=== PATIENT | male | born 1965 | race Caucasian/White ===

== ENCOUNTER → 2019-07-24 13:48 | Outpatient (BNVA) | payer MEDICAID, SELFPAY | PROVIDERS: Visit Provider Social Worker | DX: F33.2 Major depressive disorder, recurrent severe without psychotic features (principal); F43.12 Post-traumatic stress disorder, chronic | CPT/HCPCS: 90834 ==

== ENCOUNTER 2019-08-08 16:15 | Inpatient (IN) | payer MEDICAID, SELFPAY ==
--- NOTE | 2019-08-08 16:34 | ED_ITS ---
Entered by Evi Wild, acting as scribe for Jolanta Cedeno MD HPI - Psych General: Chief Complaint: Psychiatric Symptoms Stated Complaint: SI Time Seen by Provider: 08/08/19 16:33 Source: patient and RN notes reviewed Mode of arrival: ambulatory Limitations: no limitations History of Present Illness: HPI Narrative: 53 yo male presents to ED with suicidal ideations. Patient states has been feeling this way for over a week but he said the feeling intensified this morning. He said he has had a lot of things going on and his anxiety is higher. He states he has a very sharp knife that he was going to use and his girlfriend has a lot of medications available. He said he tried several years ago to commit suicide after witnessing his son commit suicide. He said he has not missed any doses of his medications. He said sometimes he uses marijuana, in addition to his medications, to help him sleep at night due to his PTSD and night terrors. complaint: suicidal ideation Onset (ago): week(s) (1) Duration: intermittent and getting worse History of same: Yes Relieving factors: none Exacerbating factors: other (anxiety) Context: significant life stressor Associated psychiatric symptoms: suicidal ideation Associated symptoms: Reports suicidal ideation Treatments prior to arrival: none If self harm: has plan Details of plan: use a knife Review of Systems General: Reports: 10 or more systems reviewed and unremarkable except in HPI and below Const: Denies: fever or chills Eyes: Denies: change in vision ENMT: Denies: throat pain Card: Denies: chest pain Resp: Denies: shortness of breath GI: Denies: abdominal pain, nausea, vomiting or change in bowel habits Musc: Denies: muscle weakness Skin/Breast: Denies: rash Neuro: Denies: headache Psych: Reports: suicidal ideation Endo: Denies: excessive urination [place]/Lymph: Denies: easy bruising or easy bleeding All/Imm: Denies: hives PFSH ED PFSH: Statuses (acute, chronic, etc) shown below reflect problem list status as previously entered and may not be historically accurate Social History Smoking and tobacco status: never smoked Physical Exam Const: COMMON NORMALS: no apparent distress, average body habitus, oriented x3, no limitations, healthy appearing, alert and well nourished HENMT: COMMON NORMALS: normocephalic, external ears normal and external nose normal HEAD & SCALP: normocephalic NOSE: external nose normal EXTERNAL EAR: Yes external ears normal MOUTH: oral and palatal mucosa normal THROAT: posterior oropharynx normal Eye: COMMON NORMALS: PERRL, EOMs intact bilaterally, conjunctivae normal and no scleral icterus CONJUNCTIVA: Yes conjunctivae normal PUPIL: Yes PERRL Neck/C-Spine: COMMON NORMALS: full ROM, no lymphadenopathy, supple and no meningeal signs CERVICAL SPINE: Yes cervical ROM normal Lymph: LYMPHATIC: no lymphadenopathy noted Chest: COMMONS NORMALS: inspection of chest normal Resp: COMMON NORMALS: normal respiratory effort, no retractions, no use of accessory muscles and clear to auscultation bilaterally AUSCULTATION: clear to auscultation bilaterally Cardio: COMMON NORMALS: regular rate, regular rhythm, no gallops, no clicks, no murmurs and no rub RATE: regular rate RHYTHM: regular rhythm GI: COMMON NORMALS: normal to inspection, nondistended, normoactive bowel sounds, soft to palpation and non-tender AUSCULTATION: Yes normoactive bowel sounds PALPATION: Yes soft : COMMON NORMALS: Yes no CVA tenderness BLADDER/KIDNEY EXAM: Yes no CVA tenderness Back/Pelvis: COMMON NORMALS: no CVA tenderness Extremity: COMMON NORMALS: normal to inspection Neuro: COMMON NORMALS: oriented x3 SENSORIUM/ORIENTATION: Yes alert MENINGEAL SIGNS: Yes no meningeal signs SPEECH: speech normal Psych: COMMON NORMALS: mental status grossly normal, thought process normal, cooperative, affect normal, speech normal, activity/motor behavior normal and denies hallucinations SPEECH: Yes normal speech THOUGHT PROCESS: normal thought process Skin: COMMON NORMALS: no rashes or lesions noted GENERAL SKIN EXAM: no rashes or lesions noted MDM - Psych MDM Narrative: Medical decision making narrative: [id number] patient is medically clear he is voluntary wants to be admitted. He has not been admitted here previously but is a patient of behavioral health care. Discussed with Dr. Medeiros accepts patient for admission. Lab Data: Labs: Lab Results 08/08/19 08/08/19 08/08/19 Range/Units 17:23 17:23 17:58 WBC 11.1 H (4.0-10.0) 10^3/ uL RBC 5.20 (4.1-5.3) 10^6/u L Hgb 15.0 (11.7-16.6) g/dL Hct 45.0 (42.0-52.0) % MCV 86.5 (80-94) fL MCH 28.8 (28.0-34.0) pg MCHC 33.3 (30.0-36.0) g/dL RDW 12.0 L (12.1-15.1) % Plt Count 388 (130-400) 10^3/c mm MPV 10.1 (7.4-10.4) fL Neut % (Auto) 64.4 % Lymph % (Auto) 28.1 % [place] % (Auto) 5.9 % Eos % (Auto) 0.8 % Baso % (Auto) 0.5 % Neut # (Auto) 7.2 (1.8-7.7) 10^3/u L Lymph # (Auto) 3.1 (0.8-4.8) 10^3/u L [place] # (Auto) 0.7 (0.2-0.9) 10^3/u L Eos # (Auto) 0.1 (0.0-0.8) 10^3/u L Baso # (Auto) 0.1 (0.0-0.1) 10^3/u L Nucleated RBC % (a uto) 0 % Nucleated RBCs # 0.0 /100WBC Sodium 139 (136-145) mmol/L Potassium 3.8 (3.5-5.1) mmol/L Chloride 101 (98-107) mmol/L Carbon Dioxide 24 (22-29) mmol/L Anion Gap 17.8 (5-19) BUN 19 (6-20) mg/dL Creatinine 1.1 (0.7-1.2) mg/dL GFR Calculation 69.8 L (90-130) mL/min Glucose 126 H (65-115) mg/dL Calcium 10.7 H (8.5-10.5) mg/dL Total Bilirubin 0.2 (0.15-1.2) mg/dL AST 21 (0-40) U/L ALT 26 (0-41) U/L Alkaline Phosphata se 89 (40-130) IU/L Total Protein 8.9 H (6.6-8.7) g/dL Albumin 5.2 (3.5-5.2) g/dL Globulin 3.7 (1.3-4.6) g/dL TSH 1.54 (0.27-4.20) uIU/ mL Urine Color Yellow (Yellow) Urine Appearance Clear (CLEAR) Urine pH 5 (5-7) Ur Specific Gravit y 1.020 (1.005-1.030) Urine Protein Neg (Negative) Urine Glucose (UA) Norm (Normal) Urine Ketones Negative (Negative) Urine Occult Blood Neg (Negative) Urine Nitrate Negative (Negative) Urine Bilirubin Neg (NEGATIVE) Urine Urobilinogen Norm (Negative) mg/dL Ur Leukocyte Asiya ase Negative (Negative) Salicylates < 0.3 L (3-10) mg/dL Urine Opiates Scre en (Negative) ng/mL Acetaminophen < 5.0 L (10-30) ug/mL Ur Barbiturates Sc reen (Negative) ng/mL Ur Phencyclidine S crn (Negative) ng/mL Ur Amphetamines Sc reen (Negative) ng/mL U Benzodiazepines Scrn (Negative) ng/mL Urine Cocaine Scre en (Negative) ng/mL U Marijuana (THC) Screen (Negative) ng/mL Ethyl Alcohol < 10 (0-10) mg/dL 08/08/19 Range/Units 17:58 WBC (4.0-10.0) 10^3/ uL RBC (4.1-5.3) 10^6/u L Hgb (11.7-16.6) g/dL Hct (42.0-52.0) % MCV (80-94) fL MCH (28.0-34.0) pg MCHC (30.0-36.0) g/dL RDW (12.1-15.1) % Plt Count (130-400) 10^3/c mm MPV (7.4-10.4) fL Neut % (Auto) % Lymph % (Auto) % [place] % (Auto) % Eos % (Auto) % Baso % (Auto) % Neut # (Auto) (1.8-7.7) 10^3/u L Lymph # (Auto) (0.8-4.8) 10^3/u L [place] # (Auto) (0.2-0.9) 10^3/u L Eos # (Auto) (0.0-0.8) 10^3/u L Baso # (Auto) (0.0-0.1) 10^3/u L Nucleated RBC % (a uto) % Nucleated RBCs # /100WBC Sodium (136-145) mmol/L Potassium (3.5-5.1) mmol/L Chloride (98-107) mmol/L Carbon Dioxide (22-29) mmol/L Anion Gap (5-19) BUN (6-20) mg/dL Creatinine (0.7-1.2) mg/dL GFR Calculation (90-130) mL/min Glucose (65-115) mg/dL Calcium (8.5-10.5) mg/dL Total Bilirubin (0.15-1.2) mg/dL AST (0-40) U/L ALT (0-41) U/L Alkaline Phosphata se (40-130) IU/L Total Protein (6.6-8.7) g/dL Albumin (3.5-5.2) g/dL Globulin (1.3-4.6) g/dL TSH (0.27-4.20) uIU/ mL Urine Color (Yellow) Urine Appearance (CLEAR) Urine pH (5-7) Ur Specific Gravit y (1.005-1.030) Urine Protein (Negative) Urine Glucose (UA) (Normal) Urine Ketones (Negative) Urine Occult Blood (Negative) Urine Nitrate (Negative) Urine Bilirubin (NEGATIVE) Urine Urobilinogen (Negative) mg/dL Ur Leukocyte Asiya ase (Negative) Salicylates (3-10) mg/dL Urine Opiates Scre en Negative (Negative) ng/mL Acetaminophen (10-30) ug/mL Ur Barbiturates Sc reen Negative (Negative) ng/mL Ur Phencyclidine S crn Negative (Negative) ng/mL Ur Amphetamines Sc reen Negative (Negative) ng/mL U Benzodiazepines Scrn Negative (Negative) ng/mL Urine Cocaine Scre en Negative (Negative) ng/mL U Marijuana (THC) Screen Positive H (Negative) ng/mL Ethyl Alcohol (0-10) mg/dL Discharge Plan Discharge Patient Disposition: Admitted As Inpatient Clinical Impression: Suicidal ideation Condition: Stable Referrals: Georgia Salazar FNP [Family Provider] - Coding Level of Care Code ED Hog Pusher for Chg Fwd The documentation recorded by the scribe, Wild,Evi R, accurately reflects the service I personally performed and the decisions made by me, Jolanta Cedeno MD Aug 08, 2019 16:15
[2019-08-08 16:49] VITALS: BP 164/98; PULSE 106; RESP 18; TEMP 36.6; O2SAT 95
--- NOTE | 2019-08-08 16:57 | ECG_ITS ---
Measurements Intervals [place] Rate: 91 P: 35 LA: 138 QRS: 17 QRSD: 112 T: 39 QT: 340 QTc: 419 SINUS RHYTHM MODERATE INTRAVENTRICULAR CONDUCTION DELAY [110+ ms QRS DURATION] No previous ECG available for comparison Electronically Signed On 08-08-2019 20:02:26 CHECK PROCESSING CLERK by Santa Meyer M.D. [email or web address]
--- NOTE | 2019-08-08 17:48 | PC.NURSE ---
Pt states he is unable to void at this time.
[2019-08-08 17:59] LABS: Basophils # 0.1 10^3/uL (0.0-0.1); Basophils % 0.5 %; Eosinophils # 0.1 10^3/uL (0.0-0.8); Eosinophils % 0.8 %; Lymphocytes # 3.1 10^3/uL (0.8-4.8); Lymphocytes % 28.1 %; Mean Corpuscular HGB Conc 33.3 g/dL (30.0-36.0); Mean Corpuscular Hemoglobin 28.8 pg (28.0-34.0); Mean Corpuscular Volume 86.5 fL (80-94); Mean Platelet Volume 10.1 fL (7.4-10.4); Monocytes # 0.7 10^3/uL (0.2-0.9); Monocytes % 5.9 %; Neutrophils # 7.2 10^3/uL (1.8-7.7); Neutrophils % 64.4 %; Nucleated Red Blood Cells % 0 %; Platelet Count 388 10^3/cmm (130-400); White Blood Count 11.1 10^3/uL (4.0-10.0)
[2019-08-08 18:19] LABS: Alanine Aminotransferase 26 U/L (0-41); Albumin Level 5.2 g/dL (3.5-5.2); Alkaline Phosphatase 89 IU/L (40-130); Anion Gap 17.8 (5-19); Aspartate Amino Transferase 21 U/L (0-40); Blood Urea Nitrogen 19 mg/dL (6-20); Calcium 10.7 mg/dL (8.5-10.5); Carbon Dioxide 24 mmol/L (22-29); Chloride 101 mmol/L (98-107); Globulin 3.7 g/dL (1.3-4.6); Glomerular Filtration Rate 69.8 mL/min (90-130); Glucose 126 mg/dL (65-115); Potassium 3.8 mmol/L (3.5-5.1); Sodium 139 mmol/L (136-145); Thyroid Stimulating Hormone 1.54 uIU/mL (0.27-4.20); Total Bilirubin 0.2 mg/dL (0.15-1.2); Total Protein 8.9 g/dL (6.6-8.7)
[2019-08-08 18:21] LABS: Acetaminophen < 5.0 ug/mL (10-30); Alcohol Level < 10 mg/dL (0-10); Salicylate < 0.3 mg/dL (3-10)
[2019-08-08 18:22] LABS: Add Urine Microscopic? NO
[2019-08-08 18:38] LABS: Bilirubin Urine Neg (NEGATIVE); Blood Urine Neg (Negative); Glucose Urine UA Norm (Normal); Ketones Urine Negative (Negative); Leukocyte Esterase Urine Negative (Negative); Nitrate Urine Negative (Negative); Protein Urine Neg (Negative); Urine Appearance Clear (CLEAR); Urine Color Yellow (Yellow); Urobilinogen Urine Norm (Negative); pH Urine 5 (5-7)
[2019-08-08 18:39] LABS: Amphetamines Screen Urine Negative (Negative); Barbiturates Screen Urine Negative (Negative); Benzodiazepines Screen Urine Negative (Negative); Cocaine Screen Urine Negative (Negative); Opiate Screen Urine Negative (Negative); PCP Screen Urine Negative (Negative); THC Screen Urine Positive (Negative)
[2019-08-08 22:00] VITALS: BP 153/93; PULSE 79; RESP 18; TEMP 36.6; O2SAT 96
[2019-08-08] MEDS: quetiapine 25 mg Tablet 50 MG PO (22:26)
[2019-08-08 22:29] VITALS: BP 140/96; PULSE 86; RESP 16; O2SAT 95
[2019-08-08] MEDS: diphenhydrAMINE 50 mg Capsule PO (22:32)
[2019-08-08] MEDS: trazodone 50 mg Tablet PO (23:38)
[2019-08-09 06:00] VITALS: BP 124/77; PULSE 84; RESP 18; TEMP 36.6; O2SAT 95
[2019-08-09] MEDS: duloxetine 60 mg Capsule PO (08:25)
[2019-08-09] MEDS: pantoprazole DR 40 mg Tablet PO (11:26)
[2019-08-09 14:00] VITALS: BP 147/92; PULSE 107; RESP 20; TEMP 36.4; O2SAT 96
[2019-08-09] MEDS: hyDROXYzine 25 mg Capsule 50 MG PO (15:47)
--- NOTE | 2019-08-09 15:51 | PC.NURSE ---
PT. NOTE: PRN VISTARIL 50MG PO GIVEN FOR ANXIETY.
--- NOTE | 2019-08-09 18:08 | PM.NHP ---
Providers/Chief Complaint Admitting Physician: Jeronimo Medeiros MD Chief Complaint: SI HPI NPU History of Present Illness Dev Moody is a 53 year-old male who presents to ED with suicidal ideation. He has felt this way for over a week but it intensified this morning. It has been intermittent and getting worse. He has had a lot of things going on and his anxiety is higher. He has a very sharp knife that he was going to use and his girlfriend has a lot of medications available. He said he tried several years ago to commit suicide after witnessing his son commit suicide. He said he has not missed any doses of his medications. He said sometimes he uses marijuana, in addition to his medications, to help him sleep at night due to his PTSD and night terrors. Review of Systems Neuro: Reports: seizure-like activity (The patient has recurrent absences from which he awakens to find that he has done complex behaviors.) Meds NPU Home Medications Medication Instructions Recorded Confirmed Type Seroquel 50 mg PO BEDTIME 08/08/19 08/08/19 History Allergies Allergy/AdvReac Type Severity Reaction Status Date / Time prazosin Allergy unknown Verified 07/04/19 14:54 PFSH NPU PFSH: Statuses (acute, chronic, etc) shown below reflect problem list status as previously entered and may not be historically accurate Medical History (Updated 08/09/19 @ 18:17 by Francesco Maya) Suicidal ideation Social History Smoking and tobacco status: never smoked Other Psychiatric History: Other Psychiatric History: Patient attended outpatient care at [facility]. His nurse practitioner suggests that he have a sleep study. He always thought he had sleep apnea. Safety: Seatbelt use: always Helmet use: No Drive intoxicated or ride with intoxicated dray driver?: never Home Safety: Firearms in home: Yes Mental Status Exam MSE Comments: The patient is alert and oriented to person, place, time, and situation. Hygiene is neat and well-groomed. The patient is oriented and nonpsychotic. He t maintains appropriate eye contact, is cooperative and relates well to me. Behavior shows no psychomotor agitation. Mood is depressed. Affect is tearful when he speaks of his experience watching his son shoot himself. Thought processes are slightly scattered but they are free of racing, blocking or looseness of association. Speech is of normal rate and volume, without dysarthria, aprosody or pressure. There is no inordinate latency of response. The patient denies auditory or visual hallucinations or delusions. The patient acknowledges suicidal but not homicidal ideation, plan or intent. He has a knife with which he intended to cut himself and bleed to . He exhibits no assaultive behavior. Memory is intact for recent and remote events with the sole exception of the absences described above. Fund of knowledge is adequate given vocabulary. Insight and judgment were deemed to be good given the recognition of problems and desire for treatment. Vitals/I&O/Wt Last Vital Signs Temp 97.6 F 08/09/19 14:00 Pulse 107 H 08/09/19 14:00 Resp 20 H 08/09/19 14:00 BP 147/92 08/09/19 14:00 Pulse Ox 96 08/09/19 14:00 Weight last 48 hrs Weight 198 lb 3.2 oz Data NPU : 08/08/19 17:23 08/08/19 17:23 A&P Assessment and plan (1) Chronic post-traumatic stress disorder (PTSD): Status: Acute Code(s): F43.12 - Post-traumatic stress disorder, chronic (2) Suicidal ideation: Status: Acute Code(s): R45.851 - Suicidal ideations Additional A&P Information This is a 53-year-old male who is aggrieved. He has recurrent thoughts of suicide and ever since seeing his son shoot himself right in the backyard. 1. Posttraumatic stress disorder with night terrors. 2. Major depressive disorder, recurrent, moderate. 3. Complicated grief. Involuntary Hold Information 96 Hour Hold: 96 Hour Involuntary Admission: No Attestations NPU Medical Necessity Statement*: This patient has a complex grief related set of problems. I anticipate 7-10 midnights additional stay. Coding Level of Care Code Acute Wall Insulation Sprayer for [facility] Miguel Diagnoses Chronic post-traumatic stress disorder (PTSD) F43.12 Suicidal ideation R45.851
[2019-08-09 19:53] VITALS: BP 126/81; PULSE 86; RESP 16; TEMP 36.8; O2SAT 96
[2019-08-09] MEDS: mirtazapine 15 mg Tablet PO (20:21)
[2019-08-10 06:00] VITALS: BP 132/87; PULSE 79; RESP 17; O2SAT 97
[2019-08-10] MEDS: pantoprazole DR 40 mg Tablet PO (08:37)
[2019-08-10] MEDS: duloxetine 60 mg Capsule PO (08:37)
[2019-08-10 14:00] VITALS: BP 133/89; PULSE 89; RESP 18; TEMP 36.8; O2SAT 95
--- NOTE | 2019-08-10 14:24 | P.PN_ITS ---
Subjective NPU Subjective: Interval history: Reviewed his history of PTSD symptoms and treatments and their interaction with his problems with sleep apnea. Cymbalta provided no benefit. Seroquel was excessively sedating. Prazosin exacerbated his sleep terrors. Trazodone, paxil and carbamazepine wiere ineffective. He is in EMDR therapy for PTSD related to the suicide of his step son 10 years ago. Medications: Medication Review Details: He slept better last night with the intitiation of mirtazapine 15 mg at bedtime. HE would benefit from a prn medication for anxiety. Mental Status Exam MSE Comments: The patient is alert and oriented to person, place, time, and situation. Hygiene is neat and well-groomed. The patient is oriented and nonpsychotic. He t maintains appropriate eye contact, is cooperative and relates well to me. Behavior shows no psychomotor agitation. Mood is depressed. Affect is euthymic. Thought processes are free of racing, blocking or looseness of association. Speech is of normal rate and volume, without dysarthria, aprosody or pressure. There is no inordinate latency of response. The patient denies auditory or visual hallucinations or delusions. The patient denied suicidal and homicidal ideation, plan or intent. Memory is intact for recent and remote events with the sole exception of the absences described above. Fund of knowledge is adequate given vocabulary. Insight and judgment were deemed to be good given the recognition of problems and desire for treatment. Cognition: Patient Appearance: Disheveled/Poor Hygiene Level of Consciousness: Awake and Alert Patient Cognition Impaired: No Ability to Follow Directions: Excellent Patient Orientation (long list): Person, Place and Time Comprehension Ability: No Impairment Hallucination Type: None Delusion Description: Not Present Thought Process: Appropriate Affect: Affect Description: Calm Depressive Symptoms: Insomnia, Increased Irritability and Isolating Oneself From Friends and Family Behavior: Patient Behavior: Cooperative Speech Pattern: Clear Vitals/I&O/Wt Last Vital Signs Temp 98.2 F 08/10/19 14:00 Pulse 89 08/10/19 14:00 Resp 18 08/10/19 14:00 BP 133/89 08/10/19 14:00 Pulse Ox 95 08/10/19 14:00 Weight last 48 hrs Weight 89.902 kg Data NPU : 08/08/19 17:23 08/08/19 17:23 A&P Assessment and plan (1) Chronic post-traumatic stress disorder (PTSD): Status: Acute Code(s): F43.12 - Post-traumatic stress disorder, chronic (2) Suicidal ideation: Status: Acute Code(s): R45.851 - Suicidal ideations Additional A&P Information This is a 53-year-old male who is aggrieved. He has recurrent thoughts of suicide and ever since seeing his son shoot himself right in the backyard. 1. Posttraumatic stress disorder with night terrors. 2. Major depressive disorder, recurrent, moderate. 3. Complicated grief. -Continue hospitalization for safety and stabilization. ? ? -Encouraged group attendance and participation. - hospital day #2: Increase mirtazapine to 30 mg at bedtime. Will provide Atarax 20 mg 4 times a day when necessary anxiety.?. ? ? -Discharge planning in progress ? -Recent clinical observations and plan reviewed with treatment team. Involuntary Hold Information 96 Hour Hold: 96 Hour Involuntary Admission: No Attestations NPU Medical Necessity Statement*: patient will remain in the hospital 1-4 more days for stabilization of medication stating and insomnia. Coding Level of Care Code Acute Fuels Engineer for [facility] Diagnoses Chronic post-traumatic stress disorder (PTSD) F43.12 Suicidal ideation R45.851
[2019-08-10 20:16] VITALS: BP 141/88; PULSE 81; RESP 17; TEMP 36.6; O2SAT 96
[2019-08-10] MEDS: mirtazapine 15 mg Tablet 30 MG PO (21:05)
[2019-08-11 06:00] VITALS: BP 147/89; PULSE 72; RESP 18; TEMP 36.3; O2SAT 98
[2019-08-11] MEDS: pantoprazole DR 40 mg Tablet PO (09:00)
--- NOTE | 2019-08-11 13:37 | PM.NPN ---
Subjective NPU Subjective: Interval history: Pt states he still did not sleep well but that mirtazapine seems to be agreeable to his system. He also reports that he has episodes during the day of paranoia and hypervigilance that reduces his activity level. Mental Status Exam MSE Comments: The patient is alert and oriented to person, place, time, and situation. Hygiene is neat and well-groomed. The patient is oriented and nonpsychotic. He t maintains appropriate eye contact, is cooperative and relates well to me. Behavior shows no psychomotor agitation. Mood is depressed. Affect is euthymic. Thought processes are free of racing, blocking or looseness of association. Speech is of normal rate and volume, without dysarthria, aprosody or pressure. There is no inordinate latency of response. The patient denies auditory or visual hallucinations or delusions. The patient denied suicidal and homicidal ideation, plan or intent. Memory is intact for recent and remote events with the sole exception of the absences described above. Fund of knowledge is adequate given vocabulary. Insight and judgment were deemed to be good given the recognition of problems and desire for treatment. Cognition: Patient Appearance: Disheveled/Poor Hygiene Level of Consciousness: Awake and Alert Patient Cognition Impaired: No Ability to Follow Directions: Excellent Patient Orientation (long list): Person, Place and Time Comprehension Ability: No Impairment Hallucination Type: None Delusion Description: Not Present Thought Process: Appropriate Affect: Affect Description: Calm Depressive Symptoms: Insomnia, Increased Irritability and Isolating Oneself From Friends and Family Behavior: Patient Behavior: Cooperative Speech Pattern: Clear Vitals/I&O/Wt Last Vital Signs Temp 97.4 F L 08/11/19 06:00 Pulse 72 08/11/19 06:00 Resp 18 08/11/19 06:00 BP 147/89 08/11/19 06:00 Pulse Ox 98 08/11/19 06:00 Data NPU : 08/08/19 17:23 08/08/19 17:23 A&P Assessment and plan (1) Chronic post-traumatic stress disorder (PTSD): Status: Acute Code(s): F43.12 - Post-traumatic stress disorder, chronic (2) Suicidal ideation: Status: Acute Code(s): R45.851 - Suicidal ideations Additional A&P Information This is a 53-year-old male who is aggrieved. He has recurrent thoughts of suicide and ever since seeing his son shoot himself right in the backyard. 1. Posttraumatic stress disorder with night terrors. 2. Major depressive disorder, recurrent, moderate. 3. Complicated grief. -Continue hospitalization for safety and stabilization. ? ? -Encouraged group attendance and participation. - hospital day #2: Increase mirtazapine to 30 mg at bedtime. Will provide Atarax 20 mg 4 times a day when necessary anxiety.?. ? - hospital day #3: continue mirtazapine. We discussed possible use of gabapentin for sleep but decided on Seroquel 100 mg at bedtime and 25 mg bid prn anxiety/paranoia as he has taken this in the past without side effects. ? -Discharge planning in progress ? -Recent clinical observations and plan reviewed with treatment team. Involuntary Hold Information 96 Hour Hold: 96 Hour Involuntary Admission: No Attestations NPU Medical Necessity Statement*: Patient to remain in hospital another three nights to emile [facility]ays Coding Level of Care Code Acute Dye Boarding Machine Operator for [facility] Diagnoses Chronic post-traumatic stress disorder (PTSD) F43.12 Suicidal ideation R45.857
[2019-08-11 14:00] VITALS: BP 147/83; PULSE 81; RESP 18; TEMP 36.7; O2SAT 96
[2019-08-11] MEDS: quetiapine 25 mg Tablet PO (17:25)
--- NOTE | 2019-08-11 17:25 | PC.NURSE ---
Addendum entered by Nika Reyes LPN 08/11/19 18:26: MEDICATION EFFECTIVE. PATIENT SITTING IN THE DAY ROOM TALKING WITH OTHER PATIENTS. Original Note: PRN SEROQUEL SEROQUEL 25MG PO PER PT C/O ANXIETY. WILL CONTINUE TO MONITOR FOR MEDICATION EFFECTIVENESS.
[2019-08-11 20:14] VITALS: BP 137/90; PULSE 84; RESP 18; O2SAT 95
[2019-08-11] MEDS: quetiapine 100 mg Tablet PO (20:25)
[2019-08-11] MEDS: mirtazapine 15 mg Tablet 30 MG PO (20:25)
[2019-08-12 06:00] VITALS: BP 133/91; PULSE 83; RESP 19; O2SAT 98
[2019-08-12] MEDS: pantoprazole DR 40 mg Tablet PO (08:08)
--- NOTE | 2019-08-12 09:44 | P.PN_ITS ---
Subjective NPU Subjective: Interval history: Pt again states he still did not sleep. He uses marijuana effectively at home to effect good sleep. But he states he is not going to do that anymore. Possibly due to his legal problems. He also complains of chest congestion. Medications: Medication Review Details: Mental Status Exam MSE Comments: The patient is alert and oriented to person, place, time, and situation. Hygiene is neat and well-groomed. The patient is oriented and nonpsychotic. He t maintains appropriate eye contact, is cooperative and relates well to me. Behavior shows no psychomotor agitation. Mood is depressed. Affect is euthymic. Thought processes are free of racing, blocking or looseness of association. Speech is of normal rate and volume, without dysarthria, aprosody or pressure. There is no inordinate latency of response. The patient denies auditory or visual hallucinations or delusions. The patient denied suicidal and homicidal ideation, plan or intent. Memory is intact for recent and remote events with the sole exception of the absences described above. Fund of knowledge is adequate given vocabulary. Insight and judgment were deemed to be good given the recognition of problems and desire for treatment. Cognition: Patient Appearance: Appears Older than Age Level of Consciousness: Awake and Alert Patient Cognition Impaired: No Ability to Follow Directions: Excellent Patient Orientation (long list): Person, Place and Time Comprehension Ability: No Impairment Hallucination Type: None Delusion Description: Not Present Thought Process: Appropriate Affect: Affect Description: Appropriate and Calm Depressive Symptoms: Insomnia, Increased Irritability and Isolating Oneself From Friends and Family Behavior: Patient Behavior: Appropriate Speech Pattern: Clear Vitals/I&O/Wt Last Vital Signs Temp 98.1 F 08/11/19 14:00 Pulse 83 08/12/19 06:00 Resp 19 H 08/12/19 06:00 BP 133/91 08/12/19 06:00 Pulse Ox 98 08/12/19 06:00 Data NPU : 08/08/19 17:23 08/08/19 17:23 A&P Assessment and plan (1) Chronic post-traumatic stress disorder (PTSD): Status: Acute Code(s): F43.12 - Post-traumatic stress disorder, chronic (2) Suicidal ideation: Status: Acute Code(s): R45.851 - Suicidal ideations Additional A&P Information This is a 53-year-old male who is aggrieved. He has recurrent thoughts of suicide and ever since seeing his son shoot himself right in the backyard. 1. Posttraumatic stress disorder with night terrors. 2. Major depressive disorder, recurrent, moderate. 3. Complicated grief. -Continue hospitalization for safety and stabilization. ? ? -Encouraged group attendance and participation. - hospital day #2: Increase mirtazapine to 30 mg at bedtime. Will provide Atarax 20 mg 4 times a day when necessary anxiety.?. ? - hospital day #3: continue mirtazapine. We discussed possible use of gabapentin for sleep but decided on Seroquel 100 mg at bedtime and 25 mg bid prn anxiety/paranoia as he has taken this in the past without side effects. - hospital day #4: add gabapentin 600 mg at bedtime for sleep. Will consider adding Marinol. Chow start guaifanesin and dextromethgorphan for chest ocngestion. ? -Discharge planning in progress ? -Recent clinical observations and plan reviewed with treatment team. Involuntary Hold Information 96 Hour Hold: 96 Hour Involuntary Admission: No Attestations NPU Medical Necessity Statement*: Patient will remain in the hospital 2 more nights of the coordinate discharge planning on Wednesday. Coding Level of Care Code Acute Department Of Sociology Chair for Edwar Rivera Diagnoses Chronic post-traumatic stress disorder (PTSD) F43.12 Suicidal ideation R45.855
[2019-08-12] MEDS: guaiFENesin-dextromethorphan UDC 10 mL 5 ML PO ×3 (11:39→19:44)
[2019-08-12 21:06] VITALS: BP 154/97; PULSE 97; RESP 22; TEMP 37.1; O2SAT 95
[2019-08-12] MEDS: mirtazapine 15 mg Tablet 30 MG PO (21:26)
[2019-08-12] MEDS: gabapentin 300 mg Capsule 600 MG PO (21:26)
[2019-08-12] MEDS: quetiapine 100 mg Tablet PO (21:27)
[2019-08-13] MEDS: guaiFENesin-dextromethorphan UDC 10 mL 5 ML PO ×3 (04:57→17:37)
[2019-08-13 06:00] VITALS: BP 145/102; PULSE 84; RESP 20; TEMP 36.4; O2SAT 96
--- NOTE | 2019-08-13 08:32 | PM.NPN ---
Subjective NPU Subjective: Interval history: Pt reports himself doing well. Spent most time in medication education and discharge planning. Medications: Medication Review Details: Mental Status Exam MSE Comments: The patient is alert and oriented to person, place, time, and situation. Hygiene is neat and well-groomed. The patient is oriented and nonpsychotic. He t maintains appropriate eye contact, is cooperative and relates well to me. Behavior shows no psychomotor agitation. Mood is depressed. Affect is euthymic. Thought processes are free of racing, blocking or looseness of association. Speech is of normal rate and volume, without dysarthria, aprosody or pressure. There is no inordinate latency of response. The patient denies auditory or visual hallucinations or delusions. The patient denied suicidal and homicidal ideation, plan or intent. Memory is intact for recent and remote events with the sole exception of the absences described above. Fund of knowledge is adequate given vocabulary. Insight and judgment were deemed to be good given the recognition of problems and desire for treatment. Cognition: Patient Appearance: Appears Older than Age Level of Consciousness: Awake and Alert Patient Cognition Impaired: No Ability to Follow Directions: Excellent Patient Orientation (long list): Person, Place and Time Comprehension Ability: No Impairment Hallucination Type: None Delusion Description: Not Present Thought Process: Appropriate Affect: Affect Description: Appropriate and Calm Depressive Symptoms: Insomnia, Increased Irritability and Isolating Oneself From Friends and Family Behavior: Patient Behavior: Appropriate Speech Pattern: Appropriate Vitals/I&O/Wt Last Vital Signs Temp 97.6 F 08/13/19 06:00 Pulse 84 08/13/19 06:00 Resp 20 H 08/13/19 06:00 BP 145/102 08/13/19 06:00 Pulse Ox 96 08/13/19 06:00 Weight last 48 hrs Weight 100.153 kg Data NPU : 08/08/19 17:23 08/08/19 17:23 A&P Assessment and plan (1) Chronic post-traumatic stress disorder (PTSD): Status: Acute Code(s): F43.12 - Post-traumatic stress disorder, chronic (2) Suicidal ideation: Status: Acute Code(s): R45.851 - Suicidal ideations Additional A&P Information This is a 53-year-old male who is aggrieved. He has recurrent thoughts of suicide and ever since seeing his son shoot himself right in the backyard. 1. Posttraumatic stress disorder with night terrors. 2. Major depressive disorder, recurrent, moderate. 3. Complicated grief. -Continue hospitalization for safety and stabilization. ? ? -Encouraged group attendance and participation. - hospital day #2: Increase mirtazapine to 30 mg at bedtime. Will provide Atarax 20 mg 4 times a day when necessary anxiety.?. ? - hospital day #3: continue mirtazapine. We discussed possible use of gabapentin for sleep but decided on Seroquel 100 mg at bedtime and 25 mg bid prn anxiety/paranoia as he has taken this in the past without side effects. - hospital day #4: add gabapentin 600 mg at bedtime for sleep. Will consider adding Marinol. Chow start guaifanesin and dextromethgorphan for chest ocngestion. - HD#5: slept well. No URI compalints. Will discharge tomorrow afternoon once follow up can be established ? -Discharge planning in progress ? -Recent clinical observations and plan reviewed with treatment team. Involuntary Hold Information 96 Hour Hold: 96 Hour Involuntary Admission: No Attestations NPU Medical Necessity Statement*: one more night. slept well. No URI compalints. Will discharge tomorrow afternoon once follow up can be established Coding Level of Care Code Acute Associate Account Director for Edwar Rivera Diagnoses Chronic post-traumatic stress disorder (PTSD) F43.12 Suicidal ideation R45.766
[2019-08-13] MEDS: pantoprazole DR 40 mg Tablet PO (08:45)
--- NOTE | 2019-08-13 09:16 | PC.NURSE ---
Addendum entered by Shelli Moscoso LPN 08/13/19 11:15: prn med effective no further c/o cough currently Original Note: PRN ROBITUSSIN 5 ML GIVEN PO PER PT C/O COUGH. WILL CONT TO MONITOR
[2019-08-13] MEDS: quetiapine 25 mg Tablet PO (11:32)
--- NOTE | 2019-08-13 11:33 | PC.NURSE ---
PRN SEROQUEL 25 MG GIVEN PO PER PT C/O ANXIETY. WILL CONT TO MONITOR
[2019-08-13 13:57] VITALS: BP 132/78; PULSE 113; RESP 18; TEMP 37; O2SAT 95
--- NOTE | 2019-08-13 17:39 | PC.NURSE ---
PRN ROBITUSSIN 5 ML GIVEN PO PER PT C/O COUGH. WILL CONT TO MONITOR
[2019-08-13] MEDS: quetiapine 100 mg Tablet PO (20:20)
[2019-08-13] MEDS: mirtazapine 15 mg Tablet 30 MG PO (20:20)
[2019-08-13] MEDS: gabapentin 300 mg Capsule 600 MG PO (20:20)
[2019-08-13 21:33] VITALS: BP 130/78; PULSE 94; RESP 19; TEMP 36.7; O2SAT 96
[2019-08-14] MEDS: guaiFENesin-dextromethorphan UDC 10 mL 5 ML PO ×2 (00:29→06:20)
[2019-08-14 05:58] VITALS: BP 115/77; PULSE 90; RESP 16; TEMP 36.8; O2SAT 96
[2019-08-14] MEDS: pantoprazole DR 40 mg Tablet PO (08:19)
[2019-08-14] MEDS: nicotine 2 mg Gum BUCCAL (09:24)
[2019-08-14] MEDS: quetiapine 25 mg Tablet PO (10:15)
--- NOTE | 2019-08-14 10:30 | P.DS_ITS ---
Diagnoses at Discharge Discharge Diagnosis (1) Chronic post-traumatic stress disorder (PTSD): Status: Acute Problem details: (1) Chronic post-traumatic stress disorder (PTSD): Status: Acute Code(s): F43.12 - Post-traumatic stress disorder, chronic (2) Suicidal ideation: Status: Acute Code(s): R45.851 - Suicidal ideations (2) Suicidal ideation: Status: Acute Reason for Visit Reason for Visit: Reason For Visit: SI Hospital Course Discharge Summary Dev Moody is a 53 year-old male who presents to ED with suicidal ideation. He has felt this way for over a week but it intensified this morning. It has been intermittent and getting worse. He has had a lot of things going on and his anxiety is higher. He has a very sharp knife that he was going to use and his girlfriend has a lot of medications available. He said he tried several years ago to commit suicide after witnessing his son commit suicide. He said he has not missed any doses of his medications. He said sometimes he uses marijuana, in addition to his medications, to help him sleep at night due to his PTSD and night terrors. Additional A&P Information This is a 53-year-old male who is aggrieved. He has recurrent thoughts of suicide and ever since seeing his son shoot himself right in the backyard. 1. Posttraumatic stress disorder with night terrors. 2. Major depressive disorder, recurrent, moderate. 3. Complicated grief. - hospital day #2: Increase mirtazapine to 30 mg at bedtime. Will provide Atarax 20 mg 4 times a day when necessary anxiety. . - hospital day #3: continue mirtazapine. We discussed possible use of gabapentin for sleep but decided on Seroquel 100 mg at bedtime and 25 mg bid prn anxiety/paranoia as he has taken this in the past without side effects. - hospital day #4: add gabapentin 600 mg at bedtime for sleep. Will consider adding Marinol. Chow start guaifanesin and dextromethgorphan for chest ocngestion. - HD#5: slept well. No URI compalints. Will discharge tomorrow afternoon once follow up can be established Involuntary Hold Information 96 Hour Hold: 96 Hour Involuntary Admission: No Mental Status Exam MSE Comments: Discharge Mental Status Exam: Appearance: hygiene is good; no gross neurological deficits., gait is unrem arkable; AIMS=0 Speech: Speech is of normal rate and rhythm and easily understood. Thought processes: Thought processes are abstract. Judgment is adequate for safety. Associations: intact Psychotic processes: There is no indication of guarding or paranoia. There is no attention to the internal stimuli. Auditory and visual hallucinations are denied. Judgment: Insight is fair. Problem solving skills are adequate for safety. Orientation: The patient is oriented to person, place time and situation. Memory: no deficits noted in immediate, intermediate, or remote spheres. Attention: The patient is alert and interpersonally engaged. Language: Verbalizations are coherent. Fund of knowledge: Fund of knowledge is adequate. Affect/Mood: Affect is consistent with a euthymic mood. denied suicidal ideation Affective range is appropriate. Psychosis: perception unimpaired except through cognitive distortion; reality testing intact. Discharge Data Vitals: Last Vital Signs Temp 98.3 F 08/14/19 05:58 Pulse 90 08/14/19 05:58 Resp 16 08/14/19 05:58 BP 115/77 08/14/19 05:58 Pulse Ox 96 08/14/19 05:58 Discharge Plan Discharge Patient Disposition: Home, Self-Care Condition: Stable Prescriptions: New quetiapine 25 mg Tablet 25 mg PO BID PRN (Reason: Anxiety) Qty: 60 RF: 3 quetiapine 100 mg Tablet 100 mg PO BEDTIME Qty: 30 RF: 3 pantoprazole 40 mg Tablet,Delayed Release (Dr/Ec) 40 mg PO DAILY Qty: 30 RF: 3 gabapentin 300 mg Capsule 600 mg PO BEDTIME Qty: 60 RF: 2 mirtazapine 15 mg Tablet 30 mg PO BEDTIME Qty: 60 RF: 3 Discontinued duloxetine [Cymbalta] 60 mg capsule,delayed release(DR/EC) 60 mg PO DAILY Qty: 30 RF: 3 quetiapine [Seroquel] 50 mg tablet 50 mg PO BEDTIME RF: 0 Discharge Orders: Discharge Order (Routine); Ordered 08/14/19 Ordered By: Rajiv Menchaca Referrals: Georgia Salazar FNP [Family Provider] - Kirsty Antoine MSW, STAMPING PRESS OPERATOR [Referring] - 08/14/19 2:00 pm Candice Hernandez PMHNP [Staff Physician] - 09/13/19 2:45 pm (Appointment for medication services.) Discharge Diet: Usual diet Discharge Activity: Increase activity as tolerated Activity Restrictions/Additional Instructions: you will need to reschedule your sleep titration study as soon as you are able. Contact the Sleep Lab to do this. [phone]. Discharge Attestations NPU Time Spent in Discharge Care*: greater than 30 min Coding Level of Care Code Acute Medical Intern for [facility] Fwd Diagnoses Chronic post-traumatic stress disorder (PTSD) F43.12 Suicidal ideation R45.480
[2019-08-14 10:55] VITALS: BP 115/77; PULSE 90; RESP 16; TEMP 36.8; O2SAT 96
== END 2019-08-14 15:15 | disposition home or self-care (01) | DRG 885 ==
LOC: ER 18:48 → NP 22:03
PROVIDERS: Admitting Provider Psychiatry & Neurology Psychiatry; Emergency Provider Emergency Medicine; Family Provider Nurse Practitioner Family; Visit Provider Psychiatry & Neurology Psychiatry
DX: F33.1 Major depressive disorder, recurrent, moderate (principal); R45.851 Suicidal ideations; F43.11 Post-traumatic stress disorder, acute; F43.21 Adjustment disorder with depressed mood; F41.9 Anxiety disorder, unspecified; Z81.8 Family history of other mental and behavioral disorders; Z91.5 Personal history of self-harm
CPT/HCPCS: 12345; 36415; 80053; 80306; 80307; 81003; 84443; 85025; 93005; 99284; J3490; Q0163

== ENCOUNTER 2019-08-08 16:15 | Emergency (ER) | payer MEDICAID, SELFPAY | END 2019-08-08 22:30 | disposition admitted as inpatient to this hospital (09) | LOC: ER 09-21 11:44 | PROVIDERS: Emergency Provider Emergency Medicine; Family Provider Nurse Practitioner Family | DX: Z76.89 Persons encountering health services in other specified circumstances (principal) | CPT/HCPCS: 36415; 80053; 80306; 80307; 81003; 84443; 85025; 93005; 96372; 99284; 99285 ==

== ENCOUNTER → 2019-09-13 14:28 | Outpatient (BNVA) | payer MEDICAID, SELFPAY | PROVIDERS: Family Provider Nurse Practitioner Family; Visit Provider Nurse Practitioner Psychiatric/Mental Health | DX: F43.12 Post-traumatic stress disorder, chronic (principal); F41.1 Generalized anxiety disorder; F31.63 Bipolar disorder, current episode mixed, severe, without psychotic features; Z79.899 Other long term (current) drug therapy | CPT/HCPCS: 99214 ==

== ENCOUNTER → 2019-09-26 07:41 | Outpatient (BNVA) | payer MEDICAID, SELFPAY | PROVIDERS: Family Provider Nurse Practitioner Family; Visit Provider Nurse Practitioner Psychiatric/Mental Health | DX: F43.12 Post-traumatic stress disorder, chronic (principal); F41.1 Generalized anxiety disorder; F31.63 Bipolar disorder, current episode mixed, severe, without psychotic features | CPT/HCPCS: 99214 ==

== ENCOUNTER → 2019-10-12 08:31 | Outpatient (BNVA) | payer MEDICAID, SELFPAY | PROVIDERS: Family Provider Nurse Practitioner Family; Visit Provider Social Worker | DX: F41.1 Generalized anxiety disorder (principal); F31.63 Bipolar disorder, current episode mixed, severe, without psychotic features; F43.12 Post-traumatic stress disorder, chronic | CPT/HCPCS: 90832 ==

== ENCOUNTER → 2019-10-19 08:19 | Outpatient (BNVA) | payer MEDICAID, SELFPAY | PROVIDERS: Family Provider Nurse Practitioner Family; Visit Provider Nurse Practitioner Psychiatric/Mental Health | DX: F43.12 Post-traumatic stress disorder, chronic (principal); F41.1 Generalized anxiety disorder; F31.63 Bipolar disorder, current episode mixed, severe, without psychotic features | CPT/HCPCS: 99214 ==

== ENCOUNTER → 2019-11-16 08:17 | Outpatient (BNVA) | payer MEDICAID, SELFPAY | PROVIDERS: Family Provider Nurse Practitioner Family; Visit Provider Nurse Practitioner Psychiatric/Mental Health | DX: F43.12 Post-traumatic stress disorder, chronic (principal); F41.1 Generalized anxiety disorder; F31.63 Bipolar disorder, current episode mixed, severe, without psychotic features | CPT/HCPCS: 99214 ==

== ENCOUNTER → 2020-01-24 07:32 | Outpatient (BNVA) | payer MEDICAID, SELFPAY | PROVIDERS: Family Provider Nurse Practitioner Family; Visit Provider Nurse Practitioner Psychiatric/Mental Health | DX: F31.64 Bipolar disorder, current episode mixed, severe, with psychotic features (principal); F43.12 Post-traumatic stress disorder, chronic; F41.1 Generalized anxiety disorder | CPT/HCPCS: 99214 ==

== ENCOUNTER → 2020-02-23 09:17 | Outpatient (BNVA) | payer MEDICAID, SELFPAY | PROVIDERS: Family Provider Nurse Practitioner Family; Visit Provider Nurse Practitioner Psychiatric/Mental Health | DX: F31.64 Bipolar disorder, current episode mixed, severe, with psychotic features (principal); F43.12 Post-traumatic stress disorder, chronic; F41.1 Generalized anxiety disorder | CPT/HCPCS: 99214 ==

== ENCOUNTER → 2020-03-06 15:27 | Outpatient (BNVA) | payer MEDICAID, SELFPAY | PROVIDERS: Family Provider Nurse Practitioner Family; Visit Provider Nurse Practitioner Psychiatric/Mental Health | DX: F31.64 Bipolar disorder, current episode mixed, severe, with psychotic features (principal); F43.12 Post-traumatic stress disorder, chronic; F41.1 Generalized anxiety disorder | CPT/HCPCS: 99214 ==

== ENCOUNTER → 2020-03-22 08:12 | Outpatient (BNVA) | payer MEDICAID, SELFPAY | PROVIDERS: Family Provider Nurse Practitioner Family; Visit Provider Nurse Practitioner Psychiatric/Mental Health | DX: F31.64 Bipolar disorder, current episode mixed, severe, with psychotic features (principal); F43.12 Post-traumatic stress disorder, chronic; F41.1 Generalized anxiety disorder | CPT/HCPCS: 99214 ==

== ENCOUNTER → 2020-04-04 08:39 | Outpatient (BNVA) | payer MEDICAID, SELFPAY | PROVIDERS: Family Provider Nurse Practitioner Family; Visit Provider Nurse Practitioner Psychiatric/Mental Health | DX: F31.64 Bipolar disorder, current episode mixed, severe, with psychotic features (principal); F43.12 Post-traumatic stress disorder, chronic; F41.1 Generalized anxiety disorder | CPT/HCPCS: 99214 ==

== ENCOUNTER → 2020-04-18 08:39 | Outpatient (BNVA) | payer MEDICAID, SELFPAY | PROVIDERS: Family Provider Nurse Practitioner Family; Visit Provider Nurse Practitioner Psychiatric/Mental Health | DX: F31.64 Bipolar disorder, current episode mixed, severe, with psychotic features (principal); F43.12 Post-traumatic stress disorder, chronic; F41.1 Generalized anxiety disorder; F33.1 Major depressive disorder, recurrent, moderate | CPT/HCPCS: 99214 ==

== ENCOUNTER → 2020-04-19 10:54 | Outpatient (BNVA) | payer MEDICAID, SELFPAY | PROVIDERS: Family Provider Nurse Practitioner Family; Visit Provider Nurse Practitioner Psychiatric/Mental Health | DX: Z20.828 Contact with and (suspected) exposure to other viral communicable diseases (principal); Z79.899 Other long term (current) drug therapy | CPT/HCPCS: 80053; 80061; 83036; 87635 ==

== ENCOUNTER → 2020-04-29 08:46 | Outpatient (BNVA) | payer MEDICAID, SELFPAY | PROVIDERS: Visit Provider Counselor Professional | DX: F31.64 Bipolar disorder, current episode mixed, severe, with psychotic features (principal); F41.1 Generalized anxiety disorder; F43.12 Post-traumatic stress disorder, chronic | CPT/HCPCS: 90832 ==

== ENCOUNTER → 2020-05-03 08:18 | Outpatient (BNVA) | payer MEDICAID, SELFPAY | PROVIDERS: Visit Provider Nurse Practitioner Psychiatric/Mental Health | DX: Z79.899 Other long term (current) drug therapy (principal); F31.64 Bipolar disorder, current episode mixed, severe, with psychotic features; F43.12 Post-traumatic stress disorder, chronic; F41.1 Generalized anxiety disorder | CPT/HCPCS: 99214 ==

== ENCOUNTER → 2020-05-17 08:02 | Outpatient (BNVA) | payer MEDICAID, SELFPAY | PROVIDERS: Visit Provider Nurse Practitioner Psychiatric/Mental Health | DX: F31.64 Bipolar disorder, current episode mixed, severe, with psychotic features (principal); F43.12 Post-traumatic stress disorder, chronic; F41.1 Generalized anxiety disorder; F40.10 Social phobia, unspecified | CPT/HCPCS: 99214 ==

== ENCOUNTER → 2020-06-05 08:51 | Outpatient (BNVA) | payer MEDICAID, SELFPAY | PROVIDERS: Visit Provider Counselor Mental Health | DX: F31.64 Bipolar disorder, current episode mixed, severe, with psychotic features (principal); F41.1 Generalized anxiety disorder | CPT/HCPCS: 90832 ==

== ENCOUNTER → 2020-06-06 08:17 | Outpatient (BNVA) | payer MEDICAID, SELFPAY | PROVIDERS: Visit Provider Nurse Practitioner Psychiatric/Mental Health | DX: F31.64 Bipolar disorder, current episode mixed, severe, with psychotic features (principal); F43.12 Post-traumatic stress disorder, chronic; F41.1 Generalized anxiety disorder | CPT/HCPCS: 99214 ==

== ENCOUNTER → 2020-06-19 07:37 | Outpatient (BNVA) | payer MEDICAID, SELFPAY | PROVIDERS: Visit Provider Nurse Practitioner Psychiatric/Mental Health | DX: F31.64 Bipolar disorder, current episode mixed, severe, with psychotic features (principal); F43.12 Post-traumatic stress disorder, chronic; F41.1 Generalized anxiety disorder | CPT/HCPCS: 99214 ==

== ENCOUNTER → 2020-07-15 09:58 | Outpatient (BNVA) | payer MEDICAID, SELFPAY | PROVIDERS: Visit Provider Nurse Practitioner Psychiatric/Mental Health | DX: F31.64 Bipolar disorder, current episode mixed, severe, with psychotic features (principal); F43.12 Post-traumatic stress disorder, chronic; F41.1 Generalized anxiety disorder | CPT/HCPCS: 99214 ==

== ENCOUNTER → 2020-07-29 09:15 | Outpatient (BNVA) | payer MEDICAID, SELFPAY | PROVIDERS: Visit Provider Nurse Practitioner Psychiatric/Mental Health | DX: F31.64 Bipolar disorder, current episode mixed, severe, with psychotic features (principal); F43.12 Post-traumatic stress disorder, chronic; F41.1 Generalized anxiety disorder | CPT/HCPCS: 99214 ==

== ENCOUNTER → 2020-08-26 08:48 | Outpatient (BNVA) | payer MEDICAID, SELFPAY | PROVIDERS: Visit Provider Nurse Practitioner Psychiatric/Mental Health | DX: F31.64 Bipolar disorder, current episode mixed, severe, with psychotic features (principal); F43.12 Post-traumatic stress disorder, chronic; F41.1 Generalized anxiety disorder | CPT/HCPCS: 99214 ==

== ENCOUNTER → 2020-09-09 07:49 | Outpatient (BNVA) | payer MEDICAID, SELFPAY | PROVIDERS: Visit Provider Nurse Practitioner Psychiatric/Mental Health | DX: F31.64 Bipolar disorder, current episode mixed, severe, with psychotic features (principal); F43.12 Post-traumatic stress disorder, chronic; F41.1 Generalized anxiety disorder | CPT/HCPCS: 99214 ==

== ENCOUNTER → 2020-09-23 10:31 | Outpatient (BNVA) | payer MEDICAID, SELFPAY | PROVIDERS: Visit Provider Nurse Practitioner Psychiatric/Mental Health | DX: F31.64 Bipolar disorder, current episode mixed, severe, with psychotic features (principal); F43.12 Post-traumatic stress disorder, chronic; F41.1 Generalized anxiety disorder | CPT/HCPCS: 99214 ==

== ENCOUNTER → 2020-10-04 09:37 | Outpatient (BNVA) | payer MEDICAID, SELFPAY | PROVIDERS: Visit Provider Counselor Mental Health | DX: F31.64 Bipolar disorder, current episode mixed, severe, with psychotic features (principal); F41.1 Generalized anxiety disorder; F43.12 Post-traumatic stress disorder, chronic | CPT/HCPCS: 90832 ==

== ENCOUNTER → 2020-10-11 08:26 | Outpatient (BNVA) | payer MEDICAID, SELFPAY | PROVIDERS: Visit Provider Counselor Mental Health | DX: F31.64 Bipolar disorder, current episode mixed, severe, with psychotic features (principal); F41.1 Generalized anxiety disorder; F43.12 Post-traumatic stress disorder, chronic | CPT/HCPCS: 90834 ==

== ENCOUNTER → 2020-10-18 08:33 | Outpatient (BNVA) | payer MEDICAID, SELFPAY | PROVIDERS: Visit Provider Counselor Mental Health | DX: F31.64 Bipolar disorder, current episode mixed, severe, with psychotic features (principal); F41.1 Generalized anxiety disorder | CPT/HCPCS: 90832 ==

== ENCOUNTER → 2020-10-22 09:03 | Outpatient (BNVA) | payer MEDICAID, SELFPAY | PROVIDERS: Visit Provider Nurse Practitioner Psychiatric/Mental Health | DX: F31.64 Bipolar disorder, current episode mixed, severe, with psychotic features (principal); F43.12 Post-traumatic stress disorder, chronic; F41.1 Generalized anxiety disorder; Z79.899 Other long term (current) drug therapy; Z03.89 Encounter for observation for other suspected diseases and conditions ruled out | CPT/HCPCS: 99214 ==

== ENCOUNTER → 2020-10-28 13:11 | Outpatient (BNVA) | payer MEDICAID, SELFPAY | PROVIDERS: Visit Provider Nurse Practitioner Psychiatric/Mental Health | DX: Z03.89 Encounter for observation for other suspected diseases and conditions ruled out (principal); Z79.899 Other long term (current) drug therapy | CPT/HCPCS: 80053; 80061; 82306; 82607; 83036; 84403; 84443; 85025 ==

== ENCOUNTER → 2020-10-29 08:42 | Outpatient (BNVA) | payer MEDICAID, SELFPAY | PROVIDERS: Visit Provider Counselor Mental Health | DX: F31.64 Bipolar disorder, current episode mixed, severe, with psychotic features (principal); F41.1 Generalized anxiety disorder; F43.12 Post-traumatic stress disorder, chronic | CPT/HCPCS: 90834 ==

== ENCOUNTER → 2020-11-04 08:30 | Outpatient (BNVA) | payer MEDICAID, SELFPAY | PROVIDERS: Visit Provider Nurse Practitioner Psychiatric/Mental Health | DX: F31.64 Bipolar disorder, current episode mixed, severe, with psychotic features (principal); F43.12 Post-traumatic stress disorder, chronic; F41.1 Generalized anxiety disorder | CPT/HCPCS: 99214 ==

== ENCOUNTER → 2020-11-12 07:53 | Outpatient (BNVA) | payer MEDICAID, SELFPAY | PROVIDERS: Visit Provider Counselor Mental Health | DX: F31.64 Bipolar disorder, current episode mixed, severe, with psychotic features (principal); F41.1 Generalized anxiety disorder; F43.12 Post-traumatic stress disorder, chronic | CPT/HCPCS: 90834 ==

== ENCOUNTER → 2020-11-18 08:57 | Outpatient (BNVA) | payer MEDICAID, SELFPAY | PROVIDERS: Visit Provider Nurse Practitioner Psychiatric/Mental Health | DX: F31.64 Bipolar disorder, current episode mixed, severe, with psychotic features (principal); F43.12 Post-traumatic stress disorder, chronic; F41.1 Generalized anxiety disorder | CPT/HCPCS: 99214 ==

== ENCOUNTER → 2020-11-27 08:36 | Outpatient (BNVA) | payer MEDICAID, SELFPAY | PROVIDERS: Visit Provider Counselor Mental Health | DX: F31.64 Bipolar disorder, current episode mixed, severe, with psychotic features (principal); F41.1 Generalized anxiety disorder; F43.12 Post-traumatic stress disorder, chronic | CPT/HCPCS: 90834 ==

== ENCOUNTER → 2020-12-02 08:22 | Outpatient (BNVA) | payer MEDICAID, SELFPAY | PROVIDERS: Visit Provider Nurse Practitioner Psychiatric/Mental Health | DX: F31.64 Bipolar disorder, current episode mixed, severe, with psychotic features (principal); F43.12 Post-traumatic stress disorder, chronic; F41.1 Generalized anxiety disorder; Z03.89 Encounter for observation for other suspected diseases and conditions ruled out; Z79.899 Other long term (current) drug therapy | CPT/HCPCS: 99214 ==

== ENCOUNTER → 2020-12-16 15:50 | Outpatient (BNVA) | payer MEDICAID, SELFPAY | PROVIDERS: Visit Provider Nurse Practitioner Psychiatric/Mental Health | DX: F31.64 Bipolar disorder, current episode mixed, severe, with psychotic features (principal); F43.12 Post-traumatic stress disorder, chronic; F41.1 Generalized anxiety disorder; Z03.89 Encounter for observation for other suspected diseases and conditions ruled out; Z79.899 Other long term (current) drug therapy | CPT/HCPCS: 99214 ==

== ENCOUNTER → 2020-12-25 07:35 | Outpatient (BNVA) | payer MEDICAID, SELFPAY | PROVIDERS: Visit Provider Nurse Practitioner Psychiatric/Mental Health | DX: F31.64 Bipolar disorder, current episode mixed, severe, with psychotic features (principal); F43.12 Post-traumatic stress disorder, chronic; F41.1 Generalized anxiety disorder; Z03.89 Encounter for observation for other suspected diseases and conditions ruled out; Z79.899 Other long term (current) drug therapy | CPT/HCPCS: 99214 ==

== ENCOUNTER → 2020-12-31 16:31 | Outpatient (BNVA) | payer MEDICAID, SELFPAY | PROVIDERS: Visit Provider Nurse Practitioner Psychiatric/Mental Health | DX: F31.64 Bipolar disorder, current episode mixed, severe, with psychotic features (principal); F43.12 Post-traumatic stress disorder, chronic; F41.1 Generalized anxiety disorder | CPT/HCPCS: 99214 ==

== ENCOUNTER → 2021-01-06 07:38 | Outpatient (BNVA) | payer MEDICAID, SELFPAY | PROVIDERS: Visit Provider Counselor Mental Health | DX: F31.64 Bipolar disorder, current episode mixed, severe, with psychotic features (principal); F41.1 Generalized anxiety disorder; F43.12 Post-traumatic stress disorder, chronic | CPT/HCPCS: 90834 ==

== ENCOUNTER → 2021-01-20 07:41 | Outpatient (BNVA) | payer MEDICAID, SELFPAY | PROVIDERS: Visit Provider Counselor Mental Health | DX: F31.64 Bipolar disorder, current episode mixed, severe, with psychotic features (principal); F41.1 Generalized anxiety disorder; F43.12 Post-traumatic stress disorder, chronic | CPT/HCPCS: 90834 ==

== ENCOUNTER → 2021-01-21 07:27 | Outpatient (BNVA) | payer MEDICAID, SELFPAY | PROVIDERS: Visit Provider Nurse Practitioner Psychiatric/Mental Health | DX: F31.64 Bipolar disorder, current episode mixed, severe, with psychotic features (principal); F43.12 Post-traumatic stress disorder, chronic; F41.1 Generalized anxiety disorder | CPT/HCPCS: 99214 ==

== ENCOUNTER → 2021-02-03 07:36 | Outpatient (BNVA) | payer MEDICAID, SELFPAY | PROVIDERS: Visit Provider Nurse Practitioner Psychiatric/Mental Health | DX: F31.64 Bipolar disorder, current episode mixed, severe, with psychotic features (principal); F43.12 Post-traumatic stress disorder, chronic; F41.1 Generalized anxiety disorder; Z03.89 Encounter for observation for other suspected diseases and conditions ruled out; Z79.899 Other long term (current) drug therapy | CPT/HCPCS: 99214 ==

== ENCOUNTER → 2021-02-04 07:51 | Outpatient (BNVA) | payer MEDICAID, SELFPAY | PROVIDERS: Visit Provider Counselor Mental Health | DX: F31.64 Bipolar disorder, current episode mixed, severe, with psychotic features (principal); F41.1 Generalized anxiety disorder; F43.12 Post-traumatic stress disorder, chronic | CPT/HCPCS: 90834 ==

== ENCOUNTER → 2021-02-17 08:05 | Outpatient (BNVA) | payer MEDICAID, SELFPAY | PROVIDERS: Visit Provider Nurse Practitioner Psychiatric/Mental Health | DX: F31.64 Bipolar disorder, current episode mixed, severe, with psychotic features (principal); F43.12 Post-traumatic stress disorder, chronic; F41.1 Generalized anxiety disorder | CPT/HCPCS: 99214 ==

== ENCOUNTER → 2021-02-18 08:45 | Outpatient (BNVA) | payer MEDICAID, SELFPAY | PROVIDERS: Visit Provider Counselor Mental Health | DX: F31.64 Bipolar disorder, current episode mixed, severe, with psychotic features (principal); F41.1 Generalized anxiety disorder; F43.12 Post-traumatic stress disorder, chronic | CPT/HCPCS: 90832 ==

== ENCOUNTER → 2021-03-04 08:12 | Outpatient (BNVA) | payer MEDICAID, SELFPAY | PROVIDERS: Visit Provider Counselor Mental Health | DX: F31.64 Bipolar disorder, current episode mixed, severe, with psychotic features (principal); F41.1 Generalized anxiety disorder; F43.12 Post-traumatic stress disorder, chronic | CPT/HCPCS: 90832; 73130; 73523; 73562 ==

== ENCOUNTER → 2021-03-10 07:31 | Outpatient (BNVA) | payer MEDICAID, SELFPAY | PROVIDERS: Visit Provider Nurse Practitioner Psychiatric/Mental Health | DX: F31.64 Bipolar disorder, current episode mixed, severe, with psychotic features (principal); F43.12 Post-traumatic stress disorder, chronic; F41.1 Generalized anxiety disorder | CPT/HCPCS: 99214 ==

== ENCOUNTER → 2021-03-18 08:33 | Outpatient (BNVA) | payer MEDICAID, SELFPAY | PROVIDERS: Visit Provider Counselor Mental Health | DX: F31.64 Bipolar disorder, current episode mixed, severe, with psychotic features (principal); F41.1 Generalized anxiety disorder; F43.12 Post-traumatic stress disorder, chronic | CPT/HCPCS: 90834 ==

== ENCOUNTER → 2021-03-28 07:25 | Outpatient (BNVA) | payer MEDICAID, SELFPAY | PROVIDERS: Visit Provider Nurse Practitioner Psychiatric/Mental Health | DX: F31.64 Bipolar disorder, current episode mixed, severe, with psychotic features (principal); F43.12 Post-traumatic stress disorder, chronic; F41.1 Generalized anxiety disorder | CPT/HCPCS: 99214 ==

== ENCOUNTER → 2021-04-15 09:21 | Outpatient (BNVA) | payer MEDICAID, SELFPAY | PROVIDERS: Visit Provider Counselor Mental Health | DX: F31.64 Bipolar disorder, current episode mixed, severe, with psychotic features (principal); F41.1 Generalized anxiety disorder; F43.12 Post-traumatic stress disorder, chronic | CPT/HCPCS: 90832 ==

== ENCOUNTER → 2021-04-17 09:12 | Outpatient (BNVA) | payer MEDICAID, SELFPAY | PROVIDERS: Visit Provider Nurse Practitioner Psychiatric/Mental Health | DX: F31.64 Bipolar disorder, current episode mixed, severe, with psychotic features (principal); F43.12 Post-traumatic stress disorder, chronic; F41.1 Generalized anxiety disorder; Z03.89 Encounter for observation for other suspected diseases and conditions ruled out; Z79.899 Other long term (current) drug therapy | CPT/HCPCS: 99214 ==

== ENCOUNTER → 2021-04-29 08:47 | Outpatient (BNVA) | payer MEDICAID, SELFPAY | PROVIDERS: Visit Provider Counselor Mental Health | DX: F31.64 Bipolar disorder, current episode mixed, severe, with psychotic features (principal); F41.1 Generalized anxiety disorder; F43.12 Post-traumatic stress disorder, chronic | CPT/HCPCS: 90832 ==

== ENCOUNTER → 2021-05-13 08:19 | Outpatient (BNVA) | payer MEDICAID, SELFPAY | PROVIDERS: Visit Provider Counselor Mental Health | DX: F31.64 Bipolar disorder, current episode mixed, severe, with psychotic features (principal); F41.1 Generalized anxiety disorder; F43.12 Post-traumatic stress disorder, chronic; F33.1 Major depressive disorder, recurrent, moderate; F43.11 Post-traumatic stress disorder, acute; R68.82 Decreased libido | CPT/HCPCS: 90834 ==

== ENCOUNTER → 2021-05-28 08:21 | Outpatient (BNVA) | payer MEDICAID, SELFPAY | PROVIDERS: Visit Provider Nurse Practitioner Psychiatric/Mental Health | DX: F31.64 Bipolar disorder, current episode mixed, severe, with psychotic features (principal); F43.12 Post-traumatic stress disorder, chronic; F41.1 Generalized anxiety disorder | CPT/HCPCS: 99214 ==

== ENCOUNTER → 2021-05-30 14:51 | Outpatient (BNVA) | payer MEDICAID, SELFPAY | PROVIDERS: Visit Provider Nurse Practitioner Family | DX: E78.2 Mixed hyperlipidemia (principal); Z03.89 Encounter for observation for other suspected diseases and conditions ruled out | CPT/HCPCS: 80053; 80061; 82306 ==

== ENCOUNTER 2021-06-10 11:21 | Outpatient (CLI) | payer MEDICAID, SELFPAY ==
--- NOTE | 2021-06-10 11:36 | ECG_ITS ---
[facility] Test Date: 2021-06-10 Pat Name: Dev Moody Department: Room: Gender: Male Attendant [employer]ated [employer]undry: : 1965 Requested By: Candice Velazquez Order Number: [id number] John MD: Santa Meyer M.D. Measurements Intervals [place] Rate: 117 P: 51 MS: 124 QRS: 5 QRSD: 109 T: 63 QT: 311 QTc: 434 Interpretive Statements SINUS TACHYCARDIA ABNORMAL RHYTHM ECG INTERPRETATION BASED ON A DEFAULT AGE OF 40 YEARS Compared to ECG 08/08/2019 17:29:53 Sinus rhythm no longer present Intraventricular conduction delay no longer present Electronically Signed On 06-11-2021 0:21:16 NETWORK MGR by Santa Meyer M.D. [id number]
== END 2021-06-10 11:22 | disposition home or self-care (01) ==
LOC: RT 11:22
PROVIDERS: Visit Provider Nurse Practitioner Psychiatric/Mental Health
DX: Z79.899 Other long term (current) drug therapy (principal); R94.31 Abnormal electrocardiogram [ECG] [EKG]
CPT/HCPCS: 93005

== ENCOUNTER → 2021-06-13 08:17 | Outpatient (BNVA) | payer MEDICAID, SELFPAY | PROVIDERS: Visit Provider Nurse Practitioner Psychiatric/Mental Health | DX: F31.64 Bipolar disorder, current episode mixed, severe, with psychotic features (principal); F43.12 Post-traumatic stress disorder, chronic; F41.1 Generalized anxiety disorder | CPT/HCPCS: 99214 ==

== ENCOUNTER → 2021-06-16 08:11 | Outpatient (BNVA) | payer MEDICAID, SELFPAY | PROVIDERS: Visit Provider Counselor Mental Health | DX: F31.64 Bipolar disorder, current episode mixed, severe, with psychotic features (principal); F41.1 Generalized anxiety disorder; F43.12 Post-traumatic stress disorder, chronic | CPT/HCPCS: 90832 ==

== ENCOUNTER → 2021-06-26 13:37 | Outpatient (BNVA) | payer MEDICAID, SELFPAY | PROVIDERS: Visit Provider Nurse Practitioner Family | DX: Z79.899 Other long term (current) drug therapy (principal) | CPT/HCPCS: 83036 ==

== ENCOUNTER → 2021-07-16 08:05 | Outpatient (BNVA) | payer MEDICAID, SELFPAY ==
[2021-07-04 14:14] VITALS: BP 118/78; BMI 32.2
== END ==
PROVIDERS: Visit Provider Nurse Practitioner Psychiatric/Mental Health
DX: F31.64 Bipolar disorder, current episode mixed, severe, with psychotic features (principal); F43.12 Post-traumatic stress disorder, chronic; F41.1 Generalized anxiety disorder
CPT/HCPCS: 99214

== ENCOUNTER → 2021-07-30 07:35 | Outpatient (BNVA) | payer MEDICAID, SELFPAY ==
[2021-07-04 14:14] VITALS: BP 118/78; BMI 32.2
== END ==
PROVIDERS: PCP Family Medicine; Visit Provider Nurse Practitioner Psychiatric/Mental Health
DX: F31.64 Bipolar disorder, current episode mixed, severe, with psychotic features (principal); F43.12 Post-traumatic stress disorder, chronic; F41.1 Generalized anxiety disorder
CPT/HCPCS: 99214

== ENCOUNTER → 2021-08-04 15:00 | Outpatient (BNVA) | payer MEDICAID, SELFPAY ==
[2021-07-04 14:14] VITALS: BP 118/78; BMI 32.2
== END ==
PROVIDERS: PCP Family Medicine; Visit Provider Counselor Mental Health
DX: F31.64 Bipolar disorder, current episode mixed, severe, with psychotic features (principal); F41.1 Generalized anxiety disorder; F43.12 Post-traumatic stress disorder, chronic
CPT/HCPCS: 90832

== ENCOUNTER → 2021-08-11 09:28 | Outpatient (BNVA) | payer MEDICAID, OTHER, SELFPAY ==
[2021-07-04 14:14] VITALS: BP 118/78; BMI 32.2
== END ==
PROVIDERS: PCP Family Medicine; Visit Provider Counselor Mental Health
DX: F31.64 Bipolar disorder, current episode mixed, severe, with psychotic features (principal); F41.1 Generalized anxiety disorder; F43.12 Post-traumatic stress disorder, chronic
CPT/HCPCS: 90832

== ENCOUNTER → 2021-08-25 08:11 | Outpatient (BNVA) | payer MEDICAID, OTHER, SELFPAY ==
[2021-07-04 14:14] VITALS: BP 118/78; BMI 32.2
== END ==
PROVIDERS: PCP Family Medicine; Visit Provider Counselor Mental Health
DX: F31.64 Bipolar disorder, current episode mixed, severe, with psychotic features (principal); F41.1 Generalized anxiety disorder; F43.12 Post-traumatic stress disorder, chronic
CPT/HCPCS: 90832

== ENCOUNTER → 2021-08-27 07:41 | Outpatient (BNVA) | payer MEDICAID, SELFPAY ==
[2021-07-04 14:14] VITALS: BP 118/78; BMI 32.2
== END ==
PROVIDERS: PCP Family Medicine; Visit Provider Nurse Practitioner Psychiatric/Mental Health
DX: F31.64 Bipolar disorder, current episode mixed, severe, with psychotic features (principal); F43.12 Post-traumatic stress disorder, chronic; F41.1 Generalized anxiety disorder
CPT/HCPCS: 99214

== ENCOUNTER → 2021-09-08 08:37 | Outpatient (BNVA) | payer MEDICAID, SELFPAY ==
[2021-07-04 14:14] VITALS: BP 118/78; BMI 32.2
== END ==
PROVIDERS: PCP Family Medicine; Visit Provider Counselor Mental Health
DX: F31.64 Bipolar disorder, current episode mixed, severe, with psychotic features (principal); F41.1 Generalized anxiety disorder; F43.12 Post-traumatic stress disorder, chronic
CPT/HCPCS: 90834

== ENCOUNTER → 2021-09-10 07:54 | Outpatient (BNVA) | payer MEDICAID, SELFPAY ==
[2021-07-04 14:14] VITALS: BP 118/78; BMI 32.2
== END ==
PROVIDERS: PCP Family Medicine; Visit Provider Nurse Practitioner Psychiatric/Mental Health
DX: F31.64 Bipolar disorder, current episode mixed, severe, with psychotic features (principal); F43.12 Post-traumatic stress disorder, chronic; F41.1 Generalized anxiety disorder
CPT/HCPCS: 99214

== ENCOUNTER → 2021-09-16 13:24 | Outpatient (BNVA) | payer MEDICAID, SELFPAY ==
[2021-07-04 14:14] VITALS: BP 118/78; BMI 32.2
== END ==
PROVIDERS: PCP Family Medicine; Visit Provider Internal Medicine Cardiovascular Disease
DX: R00.2 Palpitations (principal); R00.0 Tachycardia, unspecified; R06.02 Shortness of breath; R42 Dizziness and giddiness; E78.2 Mixed hyperlipidemia

== ENCOUNTER → 2021-09-22 08:31 | Outpatient (BNVA) | payer MEDICAID, SELFPAY ==
[2021-07-04 14:14] VITALS: BP 118/78; BMI 32.2
== END ==
PROVIDERS: PCP Family Medicine; Visit Provider Counselor Mental Health
DX: F31.64 Bipolar disorder, current episode mixed, severe, with psychotic features (principal); F41.1 Generalized anxiety disorder; F43.12 Post-traumatic stress disorder, chronic
CPT/HCPCS: 90834

== ENCOUNTER → 2021-09-24 07:46 | Outpatient (BNVA) | payer MEDICAID, SELFPAY ==
[2021-07-04 14:14] VITALS: BP 118/78; BMI 32.2
== END ==
PROVIDERS: PCP Family Medicine; Visit Provider Nurse Practitioner Psychiatric/Mental Health
DX: F31.64 Bipolar disorder, current episode mixed, severe, with psychotic features (principal); F43.12 Post-traumatic stress disorder, chronic; F41.1 Generalized anxiety disorder
CPT/HCPCS: 99214

== ENCOUNTER → 2021-10-06 07:49 | Outpatient (BNVA) | payer MEDICAID, SELFPAY ==
[2021-07-04 14:14] VITALS: BP 118/78; BMI 32.2
== END ==
PROVIDERS: PCP Family Medicine; Visit Provider Counselor Mental Health
DX: F31.64 Bipolar disorder, current episode mixed, severe, with psychotic features (principal); F41.1 Generalized anxiety disorder; F43.12 Post-traumatic stress disorder, chronic
CPT/HCPCS: 90834

== ENCOUNTER → 2021-10-20 08:03 | Outpatient (BNVA) | payer MEDICAID, SELFPAY ==
[2021-07-04 14:14] VITALS: BP 118/78; BMI 32.2
== END ==
PROVIDERS: PCP Family Medicine; Visit Provider Counselor Mental Health
DX: F31.64 Bipolar disorder, current episode mixed, severe, with psychotic features (principal); F41.1 Generalized anxiety disorder; F43.12 Post-traumatic stress disorder, chronic
CPT/HCPCS: 90832

== ENCOUNTER → 2021-10-29 07:21 | Outpatient (BNVA) | payer MEDICAID, SELFPAY ==
[2021-07-04 14:14] VITALS: BP 118/78; BMI 32.2
== END ==
PROVIDERS: PCP Family Medicine; Visit Provider Nurse Practitioner Psychiatric/Mental Health
DX: F31.64 Bipolar disorder, current episode mixed, severe, with psychotic features (principal); F43.12 Post-traumatic stress disorder, chronic; F41.1 Generalized anxiety disorder
CPT/HCPCS: 99214

== ENCOUNTER → 2021-11-12 07:20 | Outpatient (BNVA) | payer MEDICAID, SELFPAY ==
[2021-07-04 14:14] VITALS: BP 118/78; BMI 32.2
== END ==
PROVIDERS: PCP Family Medicine; Visit Provider Nurse Practitioner Psychiatric/Mental Health
DX: F31.64 Bipolar disorder, current episode mixed, severe, with psychotic features (principal); F43.12 Post-traumatic stress disorder, chronic; F41.1 Generalized anxiety disorder
CPT/HCPCS: 99214

== ENCOUNTER → 2021-12-10 06:15 | Outpatient (BNVA) | payer MEDICAID, SELFPAY ==
[2021-07-04 14:14] VITALS: BP 118/78; BMI 32.2
== END ==
PROVIDERS: PCP Family Medicine; Visit Provider Nurse Practitioner Psychiatric/Mental Health
DX: F31.64 Bipolar disorder, current episode mixed, severe, with psychotic features (principal); F43.12 Post-traumatic stress disorder, chronic; F41.1 Generalized anxiety disorder
CPT/HCPCS: 99214

== ENCOUNTER → 2021-12-18 07:28 | Outpatient (BNVA) | payer MEDICAID, SELFPAY ==
[2021-07-04 14:14] VITALS: BP 118/78; BMI 32.2
== END ==
PROVIDERS: PCP Family Medicine; Visit Provider Counselor Mental Health
DX: F31.64 Bipolar disorder, current episode mixed, severe, with psychotic features (principal); F41.1 Generalized anxiety disorder; F43.12 Post-traumatic stress disorder, chronic
CPT/HCPCS: 90832

== ENCOUNTER → 2022-01-20 15:23 | Outpatient (BNVA) | payer MEDICAID, SELFPAY ==
[2021-07-04 14:14] VITALS: BP 118/78; BMI 32.2
== END ==
PROVIDERS: PCP Family Medicine; Visit Provider Internal Medicine Cardiovascular Disease
DX: R00.2 Palpitations (principal); R00.0 Tachycardia, unspecified; F41.1 Generalized anxiety disorder
CPT/HCPCS: 99213; 99214

== ENCOUNTER → 2022-02-09 10:27 | Outpatient (BNVA) | payer MEDICAID, SELFPAY ==
[2021-07-04 14:14] VITALS: BP 118/78; BMI 32.2
== END ==
PROVIDERS: PCP Family Medicine; Visit Provider Podiatrist Foot & Ankle Surgery
DX: B35.1 Tinea unguium (principal)
CPT/HCPCS: 99203

== ENCOUNTER → 2022-07-07 13:12 | Outpatient (BNVA) | payer OTHER, SELFPAY ==
[2021-07-04 14:14] VITALS: BP 118/78; BMI 32.2
== END ==
PROVIDERS: PCP Family Medicine; Visit Provider Nurse Practitioner Psychiatric/Mental Health
DX: F31.64 Bipolar disorder, current episode mixed, severe, with psychotic features (principal); Z79.899 Other long term (current) drug therapy
CPT/HCPCS: 80061; 83036

== ENCOUNTER → 2022-07-21 14:44 | Outpatient (BNVA) | payer MEDICAID, SELFPAY ==
[2022-07-21 10:35] VITALS: BP 143/100; BMI 33.5
== END ==
PROVIDERS: PCP Family Medicine; Visit Provider Internal Medicine Cardiovascular Disease
DX: R00.2 Palpitations (principal); Z87.891 Personal history of nicotine dependence
CPT/HCPCS: 99214; Q3014

== ENCOUNTER → 2022-07-29 12:18 | Outpatient (BNVA) | payer MEDICAID, SELFPAY ==
[2022-07-21 10:35] VITALS: BP 143/100; BMI 33.5
== END ==
PROVIDERS: PCP Family Medicine; Visit Provider Podiatrist Foot & Ankle Surgery
DX: B35.1 Tinea unguium (principal); L60.0 Ingrowing nail; L60.2 Onychogryphosis
CPT/HCPCS: 11750; A6219

== ENCOUNTER → 2022-08-07 09:51 | Outpatient (BNVA) | payer MEDICAID, SELFPAY ==
[2022-07-21 10:35] VITALS: BP 143/100; BMI 33.5
== END ==
PROVIDERS: PCP Family Medicine; Visit Provider Podiatrist Foot & Ankle Surgery
DX: B35.1 Tinea unguium (principal); L60.0 Ingrowing nail
CPT/HCPCS: 99214

== ENCOUNTER → 2023-03-16 10:18 | Outpatient (BNVA) | payer MEDICAID, SELFPAY ==
[2022-07-21 10:35] VITALS: BP 143/100; BMI 33.5
== END ==
PROVIDERS: PCP Family Medicine; Visit Provider Nurse Practitioner Psychiatric/Mental Health
DX: Z79.899 Other long term (current) drug therapy (principal); F31.64 Bipolar disorder, current episode mixed, severe, with psychotic features; F43.12 Post-traumatic stress disorder, chronic; F41.1 Generalized anxiety disorder
CPT/HCPCS: 80053; 80061; 83036

== ENCOUNTER → 2023-07-26 12:07 | Outpatient (BNVA) | payer OTHER, SELFPAY ==
[2022-07-21 10:35] VITALS: BP 143/100; BMI 33.5
== END ==
PROVIDERS: PCP Family Medicine; Visit Provider Nurse Practitioner Psychiatric/Mental Health
DX: F31.64 Bipolar disorder, current episode mixed, severe, with psychotic features (principal); Z79.899 Other long term (current) drug therapy
CPT/HCPCS: 80061; 83036

== ENCOUNTER → 2023-09-30 10:40 | Outpatient (BNVA) | payer MEDICAID, SELFPAY ==
[2023-07-30 10:52] VITALS: BP 137/92; BMI 29.7
== END ==
PROVIDERS: PCP Nurse Practitioner Family; Visit Provider Nurse Practitioner Family
DX: E78.2 Mixed hyperlipidemia (principal); M25.551 Pain in right hip; G89.29 Other chronic pain
CPT/HCPCS: 80053; 80061

== ENCOUNTER → 2023-10-15 10:41 | Outpatient (BNVA) | payer MEDICAID, SELFPAY ==
[2023-07-30 10:52] VITALS: BP 137/92; BMI 29.7
== END ==
PROVIDERS: PCP Nurse Practitioner Family; Visit Provider Internal Medicine Cardiovascular Disease
DX: E78.2 Mixed hyperlipidemia (principal); R00.2 Palpitations; R06.02 Shortness of breath
CPT/HCPCS: 99213

== ENCOUNTER → 2023-10-26 12:46 | Outpatient (BNVA) | payer MEDICAID, SELFPAY ==
[2023-07-30 10:52] VITALS: BP 137/92; BMI 29.7
== END ==
PROVIDERS: PCP Nurse Practitioner Family; Visit Provider Internal Medicine Cardiovascular Disease
DX: R00.2 Palpitations (principal); I49.1 Atrial premature depolarization; I49.3 Ventricular premature depolarization
CPT/HCPCS: 93225

== ENCOUNTER → 2024-02-16 13:30 | Outpatient (BNVA) | payer MEDICAID, SELFPAY ==
[2023-07-30 10:52] VITALS: BP 137/92; BMI 29.7
== END ==
PROVIDERS: PCP Family Medicine; Visit Provider Family Medicine
DX: Z12.5 Encounter for screening for malignant neoplasm of prostate (principal); E29.1 Testicular hypofunction; E55.9 Vitamin D deficiency, unspecified; R53.82 Chronic fatigue, unspecified; F41.1 Generalized anxiety disorder
CPT/HCPCS: 80053; 80061; 82306; 84403; 84439; 84443; 85025; G0103

== ENCOUNTER → 2024-08-07 15:38 | Outpatient (BNVA) | payer OTHER, SELFPAY ==
[2023-07-30 10:52] VITALS: BP 137/92; BMI 29.7
== END ==
PROVIDERS: PCP Family Medicine; Visit Provider Nurse Practitioner Psychiatric/Mental Health
DX: Z79.899 Other long term (current) drug therapy (principal)
CPT/HCPCS: 80053; 80061; 82306; 83036

== ENCOUNTER → 2025-03-28 13:00 | Outpatient (BNVA) | payer MEDICAID, SELFPAY ==
[2023-07-30 10:52] VITALS: BP 137/92; BMI 29.7
== END ==
PROVIDERS: PCP Family Medicine; Visit Provider Family Medicine
DX: E55.9 Vitamin D deficiency, unspecified (principal); F31.64 Bipolar disorder, current episode mixed, severe, with psychotic features; E78.2 Mixed hyperlipidemia; R97.20 Elevated prostate specific antigen [PSA]; N40.0 Benign prostatic hyperplasia without lower urinary tract symptoms; Z12.5 Encounter for screening for malignant neoplasm of prostate
CPT/HCPCS: 80053; 80061; 82306; 85025; G0103